=== PATIENT | female | born 1980 | race Caucasian/White ===

== ENCOUNTER 2019-09-28 12:15 | Inpatient (IN) | payer MEDICAID ==
[~2019-09-28] VITALS: Ht 170.2 cm; Wt 118.8 kg
--- NOTE | 2019-09-28 12:34 | NUR ---
SEEN AND EXAMINED BY
--- NOTE | 2019-09-28 12:40 | NUR ---
fever, worsening cough and congestion. +covid19 on 09/24/19. PT AAOX4, VSS. RR EVEN & UNLABORED. DENIES CP, DIZZINESS, N/V/D AT THIS TIME. WILL CONT TO MONITOR.
[2019-09-28] MEDS ORDERED: IV NS 0.9% 1,000 ML IV ONE (13:16)
[2019-09-28] MEDS ORDERED: CEFTRIAXONE 1GM BAG (ER ONLY) 50 ML IV ONE ×2 (13:22→13:30)
[2019-09-28] MEDS ORDERED: AZITHROMYCIN 500 MG VIAL ONE (13:22)
[2019-09-28] MEDS ORDERED: AZITHROMYCIN 500 MG in IV D5W 250 ML IV ONE (13:30)
--- NOTE | 2019-09-28 13:30 | NUR ---
GAVE MOVESHEET AND CLINICALS TO ADMITTING
[2019-09-28 13:47] LABS: BASOPHILS # (AUTO) 0.1 /CMM (0.0-0.2); BASOPHILS % (AUTO) 1.5 % (0.0-2.0); EOSINOPHILS % (AUTO) 2.6 % (0.0-6.0); HEMATOCRIT 35 % (33-45); HEMOGLOBIN 11.5 g/dL (11.5-14.8); LYMPHOCYTES # (AUTO) 1.2 /CMM (0.8-4.8); LYMPHOCYTES % (AUTO) 25.7 % (20.0-44.0); MEAN CORPUSCULAR HGB CONC 34 g/dl (31.0-36.0); MEAN CORPUSCULAR VOLUME 81 fL (82-100); MONOCYTES # (AUTO) 0.2 /CMM (0.1-1.30); MONOCYTES % (AUTO) 4.9 % (2.0-12.0); NEUTROPHILS # (AUTO) 3.1 /CMM (1.8-8.9); NEUTROPHILS % (AUTO) 65.3 % (43.0-81.0); PLATELET COUNT (AUTO) 193 /CMM (150-450); RED BLOOD CELL COUNT(AUTO) 4.25 MIL/uL (4.0-5.2); WHITE BLOOD COUNT (AUTO) 4.7 K/uL (4.3-11.0)
--- NOTE | 2019-09-28 13:50 | NUR ---
MEDICATED PER ERMD ORDER, PT VILMA WELL.
[2019-09-28 13:54] LABS: CALCIUM, SERUM 8.5 mg/dL (8.5-10.1); CREATININE 0.7 mg/dL (0.6-1.3); POTASSIUM 3.8 mmol/L (3.5-5.1)
[2019-09-28 14:07] LABS: ALBUMIN 3.6 g/dL (3.4-5.0); BILIRUBIN,TOTAL 0.2 mg/dL (0.2-1.0); TOTAL PROTEIN, SERUM 7.6 g/dL (6.4-8.2)
[2019-09-28 14:22] LABS: C-REACTIVE PROTEIN 5.7 mg/dL (0.0-0.9)
--- NOTE | 2019-09-28 14:54 | NUR ---
RECEIVED CALL FROM RONI AT [facility], WORKING ON TRANSFER TO [facility] WILL CALL BACK WITH UPDATE
--- NOTE | 2019-09-28 14:56 | NUR ---
SANJU ELLIOTT [phone]
[2019-09-28 15:27] LABS: D-DIMER 0.9 mg/L(FEU (0.17-0.50)
--- NOTE | 2019-09-28 16:27 | NUR ---
RECEIVED CALL FROM SANJU ELLIOTT, STILL NO BED AT [facility]
--- NOTE | 2019-09-28 17:14 | NUR ---
PT STABLE, USING CELLPHONE, VSS. RR EVEN & UNLABORED. DENIES CP, SOB, DIZZINESS, N/V AT THIS TIME. WILL CONT TO MONITOR.
--- NOTE | 2019-09-28 17:50 | NUR ---
CALLED SANJU ELLIOTT REGARDING ADMISSION, LEFT VOICEMAIL
--- NOTE | 2019-09-28 18:20 | NUR ---
SPOKE TO SANJU ELLIOTT, CANNOT AUTH ADMISSION FOR PT TO STAY, UNABLE TO GIVE ETA FOR BED ASSIGNMENT AT [facility]
--- NOTE | 2019-09-28 18:23 | NUR ---
CALLED DR BARBOSA, WILL NOT ACCEPT WITHOUT AUTHORIZATION
--- NOTE | 2019-09-28 18:57 | NUR ---
CALLED SANJU ELLIOTT PT STILL PENDING TRANSFER
--- NOTE | 2019-09-28 20:30 | NUR ---
REPORT CALLED TO PROVIDER RELATIONS COORDINATORMARJORIE ESPARZA. WILL TRANSPORT PT WIA ACLS PROTOCOL.
--- NOTE | 2019-09-28 21:02 | NUR ---
TRAVELING BUYER NOTES RECEIVED PATIENT. A/O X4. ON RA, NO SOB/ ACUTE RESPIRATORY DISTRESS NOTED. IV IN R AC #18G IS PATENT AND INTACT. APPEARS COMFORTABLE/ NO COMPLAINTS OF PAIN AT THE MOMENT. PATIENT IS AMBULATORY. BED IS IN LOWEST LOCKED POSITION WITH SIDE RAILS UP X2, SEMI FOWLERS. PATIENT ORIENTED TO ROOM. CALL LIGHT IS WITHIN REACH. WILL CONTINUE TO MONITOR.
[2019-09-28] MEDS ORDERED: ACETAMINOPHEN 325 MG TABLET PO PRN (22:00)
[2019-09-28] MEDS ORDERED: ZOLPIDEM TARTRATE 5 MG TABLET PO PRN (22:00)
--- NOTE | 2019-09-29 06:18 | NUR ---
AUTO HEATER MECHANIC CLOSE NOTES PATIENT IS LAYING IN BED. A/O X4. ON 2L NASAL CANULA, NO SOB/ ACUTE RESPIRATORY DISTRESS NOTED. IV IN R AC #18G IS PATENT AND INTACT. APPEARS COMFORTABLE/ NO COMPLAINTS OF PAIN AT THE MOMENT. PATIENT IS AMBULATORY. BED IS IN LOWEST LOCKED POSITION WITH SIDE RAILS UP X2, SEMI FOWLERS. CALL LIGHT IS WITHIN REACH. WILL ENDORSE TO AM NURSE.
[2019-09-29 07:10] LABS: BASOPHILS % (AUTO) 0.8 % (0.0-2.0); EOSINOPHILS % (AUTO) 2.2 % (0.0-6.0); HEMATOCRIT 32 % (33-45); HEMOGLOBIN 10.7 g/dL (11.5-14.8); LYMPHOCYTES # (AUTO) 1.6 /CMM (0.8-4.8); MEAN CORPUSCULAR HGB CONC 33 g/dl (31.0-36.0); MEAN CORPUSCULAR VOLUME 81 fL (82-100); MONOCYTES # (AUTO) 0.3 /CMM (0.1-1.30); MONOCYTES % (AUTO) 5.9 % (2.0-12.0); NEUTROPHILS # (AUTO) 2.4 /CMM (1.8-8.9); NEUTROPHILS % (AUTO) 55.1 % (43.0-81.0); PLATELET COUNT (AUTO) 185 /CMM (150-450); RED BLOOD CELL COUNT(AUTO) 3.96 MIL/uL (4.0-5.2); WHITE BLOOD COUNT (AUTO) 4.4 K/uL (4.3-11.0)
[2019-09-29 07:27] LABS: CALCIUM, SERUM 8.4 mg/dL (8.5-10.1); CREATININE 0.6 mg/dL (0.6-1.3); POTASSIUM 3.4 mmol/L (3.5-5.1)
[2019-09-29 07:30] LABS: THYROID STIMULATING HORMONE 4.426 uIU/mL (0.358-3.74)
--- NOTE | 2019-09-29 07:30 | NUR ---
OPENING NOTES Received patient in bed, A/Ox4.ambulatory, able to make needs known, IV line noted on R AC # 20 noted, intact and patent. Safety measures implement, call light in reach, bed in lowest position, will cont to monitor
[2019-09-29 07:40] LABS: C-REACTIVE PROTEIN 5.6 mg/dL (0.0-0.9)
[2019-09-29 08:00] VITALS: BP 110/69
--- NOTE | 2019-09-29 08:00 | NUR ---
IV line occluded, will inset new
--- NOTE | 2019-09-29 08:15 | NUR ---
IV ACCESS ESTABLISHED ON L AC G20, INTACT, FLUSHED AND PATENT
[2019-09-29] MEDS ORDERED: POTASSIUM CHLORIDE 20 MEQ TAB.PRT.SR PO ONE (09:00)
[2019-09-29] MEDS: ENOXAPARIN SODIUM 40 MG/0.4 ML DISP.SYRIN SQ SCH (09:15)
[2019-09-29] MEDS: DEXAMETHASONE SOD PHOSPHATE 10 MG/ML VIAL IV SCH (09:16)
[2019-09-29 12:00] VITALS: BP 127/78
--- NOTE | 2019-09-29 12:31 | NUR ---
visit time observed 10minutes and guided with donning/doffing PPE.
[2019-09-29] MEDS: GUAIFENESIN 300 MG/15 ML UDC PO PRN ×3 (14:02→22:27)
[2019-09-29 16:00] VITALS: BP 147/87
--- NOTE | 2019-09-29 19:05 | NUR ---
bottom turning lathe tender opening notes received patient awake in room , alert and oriented x4, respirations even and unlabored with equal rise and fall of chest, denies any pain or discomfort at this time, noted with non productive cough, on threat monitoring analyst sr 90, ambulatory steady, iv site to left ac #20 g sl intact and patent,no redness, no infiltration present, oriented to staff and call light and kept within reach, all needs attended at this time will continue to monitor.
--- NOTE | 2019-09-29 19:31 | NUR ---
RN CLOSING NOTES Patient remains in bed, tolerating treatment well, all need are met, medications given, safety measures implemented, call light in reach, bed in lowest position, will endorse to PM shift RN for IVAN
[2019-09-29 20:00] VITALS: BP 134/66
--- NOTE | 2019-09-29 20:30 | NUR ---
ornamental iron worker apprentice notes patient requested for vitamin c and zinc. dr. kimball made aware, with new orders for vitamin c 500mg daily and zinc 22mg daily. patient made aware.
[2019-09-29] MEDS: ASCORBIC ACID 500 MG TABLET PO SCH (20:59)
[2019-09-29] MEDS: ZINC SULFATE 220 MG CAPSULE PO SCH (20:59)
--- NOTE | 2019-09-29 22:28 | NUR ---
rn clinical review notes patient complained of cough requesting for robitusson, prn given as ordered, will continue to monitor for effectiveness.
--- NOTE | 2019-09-29 22:38 | NUR ---
advisory internship notes patient states " i haven't slept in days can i have something to help me sleep". carla posey offered patient agreed and given , will continue to monitor for effectiveness, vs wnl.
[2019-09-30] VITALS: BP 148/76
[2019-09-30 04:22] VITALS: BP 110/54
--- NOTE | 2019-09-30 06:22 | NUR ---
rn neurology closing notes patient in room sleeping easily arousable, alert and oriented x4, respirations even and unlabored with equal rise and fall of chest, denies any pain or discomfort at this time, noted with non productive cough, on senior product development scientist sr 77, ambulatory steady, iv site to left ac #20 g sl intact and patent,no redness, no infiltration present, call light kept within reach, all needs attended at this time will continue to monitor and attend to needs and endorse to next a shift, jayneien was effective patient slept well.
[2019-09-30 07:00] LABS: CALCIUM, SERUM 8.8 mg/dL (8.5-10.1); CREATININE 0.6 mg/dL (0.6-1.3); POTASSIUM 3.6 mmol/L (3.5-5.1)
[2019-09-30 08:00] VITALS: BP 116/63
--- NOTE | 2019-09-30 08:15 | NUR ---
KATHERIN FERRYBOAT OPERATOR OPENING NOTES PT IS SLEEPING. ALERT AND ORIENTED X4. LAC #20 IS FLUSHING WELL AND INTACT WITH SL . PT IS ON RA. SATURATING IN HER 96%.ALL MEDS ARE GIVEN . PT HAS NO PAIN. SAFETY MEASUREMENTS ARE IMPLEMENTED. BED IN THE LOWEST POSITION AND SIDE RAILS ARE UP X2. WILL CONTINUE TO MONITOR
[2019-09-30] MEDS: ASCORBIC ACID 500 MG TABLET PO SCH (09:09)
[2019-09-30] MEDS: ZINC SULFATE 220 MG CAPSULE PO SCH (09:09)
[2019-09-30] MEDS: DEXAMETHASONE SOD PHOSPHATE 10 MG/ML VIAL IV SCH (09:10)
[2019-09-30] MEDS: ENOXAPARIN SODIUM 40 MG/0.4 ML DISP.SYRIN SQ SCH (09:12)
[2019-09-30 12:00] VITALS: BP 110/48
--- NOTE | 2019-09-30 13:10 | NUR ---
KATHERIN RN NOTES PT IS GOING TO TRANSFER TO [facility] TO BED#301 B . CALLED TO [place] BUT SHE WAS ON BREAK GAVE REPORT TO [place]. PT VS WNL. NO PAIN. PT RAMACHANDRAN ALL DC PAPER AND PRINT OUT COVID 19 RESULT.
--- NOTE | 2019-09-30 13:20 | NUR ---
KATHERIN RN NOTES AMBULATORY CAME TO DISTRIBUTION ANALYST THE PATIENT. NO SOB NOTED. PT IS STABLE AND VS WNL. GAVE REPORT TO [place].
[2019-10-01 04:48] LABS: HIV SCRN 4G wRFX Non Reactive (Non Reactive)
== END 2019-09-30 13:20 | disposition short-term general hospital (02) | DRG 137 ==
LOC: ER 12:15 → TELE1 20:09
PROVIDERS: ADMIT Internal Medicine; ATTEND Internal Medicine
DX: U07.1 COVID-19 (principal); J22 Unspecified acute lower respiratory infection; J12.89 Other viral pneumonia; E66.9 Obesity, unspecified; Z68.41 Body mass index [BMI] 40.0-44.9, adult; R09.02 Hypoxemia
CPT/HCPCS: 36415; 71045-TC; 80048-TC; 80053-TC; 82550-TC; 82553; 82728-TC; 83605-TC; 83615-TC; 83880; 84443-TC; 84702-TC; 84703-TC; 85025-TC; 85378-TC; 85385-TC; 85730-TC; 86140-TC; 86803; 87040-TC; 87081-TC; G0378; J0456; J0696; J1100; J1650; J7030; J7060; U0003-CS